=== PATIENT | female | born 1985 | race Caucasian/White ===

== ENCOUNTER 2024-06-16 08:20 | Outpatient (CLI) | payer OTHER ==
[2024-06-16 09:28] LABS: BASOPHILS % (AUTO) 0.7 % (0.0-2.0); EOSINOPHILS # (AUTO) 0.1 K/uL (0-0.4); EOSINOPHILS % (AUTO) 2.7 % (0.0-4.0); HEMATOCRIT 41.5 % (36-48); HEMOGLOBIN 14.1 g/dL (12.0-16.0); LYMPHOCYTES # (AUTO) 1.6 K/uL (2.5-16.5); LYMPHOCYTES % (AUTO) 37.8 % (20.5-51.1); MEAN CORPUSCULAR HEMOGLOBIN 30 pg (27-31); MEAN CORPUSCULAR HGB CONC 34 g/dL (33-37); MEAN CORPUSCULAR VOLUME 87.2 fL (80-94); MONOCYTES # (AUTO) 0.4 K/uL (0.8-1.0); MONOCYTES % (AUTO) 8.3 % (1.7-9.3); NEUTROPHILS # (AUTO) 2.2 K/uL (1.8-7.7); NEUTROPHILS % (AUTO) 50.5 % (42.2-75.2); PLATELET COUNT (AUTO) 247 K/uL (140-450); RED BLOOD CELL COUNT(AUTO) 4.76 MIL/uL (4.20-5.40); RED CELL DISTRIBUTION WIDTH 13.2 % (11.6-13.7); WHITE BLOOD COUNT (AUTO) 4.3 K/uL (4.8-10.8)
[2024-06-16 09:41] LABS: ALBUMIN 3.9 g/dL (3.4-5.0); ANION GAP 11.4 (8-16); CALCIUM 8.9 mg/dL (8.5-10.1); CARBON DIOXIDE 27.5 mmol/L (21-32); CHOL/HDL RATIO 2.4 (1-4.5); CREATININE 0.7 mg/dL (0.6-1.3); POTASSIUM 3.9 mmol/L (3.5-5.1); THYROID STIMULATING HORMONE 3.27 uIU/mL (0.34-3.74); TOTAL BILIRUBIN 0.7 mg/dL (0.0-1.0); TOTAL PROTEIN, SERUM 7.3 g/dL (6.4-8.2)
[2024-06-17 09:06] LABS: HEPATITIS B SURFACE ANTIGEN Negative (Negative); HEPATITIS C AB Non Reactive (Non Reactive); VITAMIN D, 25-HYDROXY 35.6 ng/mL (30.0-100.0)
[2024-06-17 12:08] LABS: HIV 1/0/2 ABS, QUAL Non Reactive (Non Reactive)
[2024-06-18 10:18] LABS: HEMOGLOBIN A1C 5.7 % (4.8-5.6)
== END 2024-06-16 19:05 | disposition home or self-care (01) ==
LOC: MLB 08:20
DX: Z01.89 Encounter for other specified special examinations (principal)
CPT/HCPCS: 36415; 80053; 82306; 83036; 84443; 85025; 86694; 86702; 86804; 87340; 87522